=== PATIENT | female | born 1970 | race African-American/Black ===

== ENCOUNTER 2018-12-11 05:49 | Emergency (ER) | payer BC, OTHER ==
[~2018-12-11] VITALS: Ht 157.5 cm; Wt 106.0 kg
[2018-12-11 07:20] LABS: BASOPHILS % 0.7 % (0.0-2.0); EOSINOPHILS % 2.2 % (0.0-5.0); HEMATOCRIT. 41.2 % (36.0-48.0); HEMOGLOBIN. 13.3 g/dL (12.0-16.0); LYMPHOCYTES % 29.5 % (20.0-50.0); MEAN CORPUSCULAR HEMOGLOBIN 26.3 pg (28.0-32.0); MEAN CORPUSCULAR VOLUME 81.5 fL (81.0-99.0); MEAN PLATELET VOLUME 9.3 fl (7.4-10.4); MONOCYTES % 5.4 % (2.0-8.0); NEUTROPHILS % 62.2 % (40.0-76.0); PLATELET 291 x1000/uL (130-400); RED BLOOD CELL COUNT 5.05 mill/uL (4.2-5.4); RED CELL DISTRIBUTION WIDTH 15.2 % (11.6-14.6)
[2018-12-11 07:21] LABS: CHLORIDE 106 mEq/L (98-107)
[2018-12-11 07:26] LABS: PROTHROMBIN TIME 10.4 sec (9.6-11.0)
[2018-12-11 08:05] VITALS: BP 148/76
== END 2018-12-11 08:15 | disposition home or self-care (01) ==
LOC: ER 05:49
DX: K62.5 Hemorrhage of anus and rectum (principal); Z98.890 Other specified postprocedural states; Z90.89 Acquired absence of other organs
CPT/HCPCS: 36415; 99283